=== PATIENT | male | born 1990 | race Caucasian/White ===

== ENCOUNTER 2018-12-16 12:33 | Emergency (ER) | payer SELFPAY ==
[2018-12-16 12:33] VITALS: BP 143/82; PULSE 89; RESP 16; TEMP 36.4; O2SAT 98; BMI 26.2
[2018-12-16 12:36] VITALS: BP 143/82; PULSE 89; RESP 16; TEMP 36.4; O2SAT 98
--- NOTE | 2018-12-16 13:41 | ED.VISSUMM ---
- ER Visit Summary Date of Service: 12/16/18 Chief Complaint: Right great toe redness and swelling History of Present Illness: The patient is a 28 M who presents with redness and swelling to his right great toe that has been getting worse over the past 2 days. Patient describes the pain is constant throbbing but is sharp when there is pressure against it. Patient denies any paresthesias or weakness. Patient admits to some drainage. Patient states he attempted to open this up on his own. Patient denies any fevers or chills. Patient denies any trauma or injury. Physical Examination: Vital signs are stable. Patient is afebrile. Patient is in no acute distress. Skin is warm and dry. There is edema, erythema, and tenderness along the lateral nail margin of the right great toe. There is some dried drainage noted. There is no active drainage. Sensation was intact to light touch in all digits. Capillary refill is less than 2 seconds in all digits. Pedal pulses are equal bilaterally. The remaining physical exam is within normal limits. Emergency Department Course and Treatment: Bacitracin dressing was applied to the right great toe. Patient was given a prescription for Keflex. Patient was instructed to keep the area clean. Patient was instructed to use warm soaks. Patient was instructed to follow-up with a primary care physician in 7-10 days. Patient understood and was agreeable with the plan. All questions were answered. Disposition: Discharge home Impression: Paronychia right great toe This note was generated with [employer] dictation software. It may contain incorrect words, spelling, and punctuation that were not noted in review of the chart prior to signing ED Disposition - Plan for ED Patient: Disposition: Home or Assisted Living Diagnosis: Paronychia of great toe, right Instructions: ED Paronychia Ch Prescriptions: Cephalexin [Keflex] 500 mg PO Q6 #40 cap Referrals: NOT,DEFINED [Primary Care Provider] -
--- NOTE | 2018-12-16 13:45 | ED.DCSUM_ITS ---
- ER Visit Summary Date of Service: 12/16/18 Chief Complaint: Right great toe redness and swelling History of Present Illness: The patient is a 28 M who presents with redness and swelling to his right great toe that has been getting worse over the past 2 days. Patient describes the pain is constant throbbing but is sharp when there is pressure against it. Patient denies any paresthesias or weakness. Patient admits to some drainage. Patient states he attempted to open this up on his own. Patient denies any fevers or chills. Patient denies any trauma or injury. Physical Examination: Vital signs are stable. Patient is afebrile. Patient is in no acute distress. Skin is warm and dry. There is edema, erythema, and tenderness along the lateral nail margin of the right great toe. There is some dried drainage noted. There is no active drainage. Sensation was intact to l ight touch in all digits. Capillary refill is less than 2 seconds in all digits. Pedal pulses are equal bilaterally. The remaining physical exam is within normal limits. Emergency Department Course and Treatment: Bacitracin dressing was applied to the right great toe. Patient was given a prescription for Keflex. Patient was instructed to keep the area clean. Patient was instructed to use warm soaks. Patient was instructed to follow-up with a primary care physician in 7-10 days. Patient understood and was agreeable with the plan. All questions were answered. Disposition: Discharge home Impression: Paronychia right great toe This note was generated with [employer] dictation software. It may contain incorrect words, spelling, and punctuation that were not noted in review of the chart prior to signing ED Disposition - Plan for ED Patient: Disposition: Home or Assisted Living Diagnosis: Paronychia of great toe, right Instructions: ED Paronychia Ch Prescriptions: Cephalexin [Keflex] 500 mg PO Q6 #40 cap Referrals: NOT,DEFINED [Primary Care Provider] -
[2018-12-16 14:00] VITALS: PULSE 87; RESP 16; O2SAT 98
[2018-12-16] MEDS: BACITRACIN 15 GM Tube 1 APPLIC TOPICAL (14:01)
== END 2018-12-16 14:02 | disposition home or self-care (01) ==
LOC: ED 14:00
PROVIDERS: Emergency Provider Emergency Medicine
DX: L03.031 Cellulitis of right toe (principal)
CPT/HCPCS: 99283